=== PATIENT | male | born 1980 | race Caucasian/White ===

== ENCOUNTER 2020-04-14 04:46 | Emergency (ER) | payer SELFPAY ==
[~2020-04-14] VITALS: Ht 172.7 cm; Wt 115.4 kg
[2020-04-14 04:49] VITALS: BP 172/101
--- NOTE | 2020-04-14 04:56 | NUR ---
pt ambulated to room. no acute distress.
== END 2020-04-14 05:26 | disposition home or self-care (01) ==
LOC: ED 05:16
DX: K02.9 Dental caries, unspecified (principal); K08.89 Other specified disorders of teeth and supporting structures; I10 Essential (primary) hypertension; Z91.14 Patient's other noncompliance with medication regimen
CPT/HCPCS: 99283

== ENCOUNTER 2020-04-15 08:02 | Emergency (ER) | payer SELFPAY ==
[~2020-04-15] VITALS: Ht 172.7 cm; Wt 113.0 kg
[2020-04-15] MEDS ORDERED: BENZOCAINE AEROSOL SPRAY 20%, 60ML ONE (08:55)
[2020-04-15] MEDS ORDERED: LIDOCAINE-MPF 1%, 5ML ONE (08:55)
[2020-04-15] MEDS ORDERED: BENZOCAINE 20% SPRAY 0.5ML TP ONE (09:00)
[2020-04-15] MEDS ORDERED: LIDOCAINE-MPF 1%, 5ML INFIL ONE (09:00)
[2020-04-15 09:15] VITALS: BP 156/104
== END 2020-04-15 09:35 | disposition home or self-care (01) ==
LOC: ED 08:54
DX: K02.9 Dental caries, unspecified (principal); K08.89 Other specified disorders of teeth and supporting structures; R22.0 Localized swelling, mass and lump, head; I10 Essential (primary) hypertension; Z91.14 Patient's other noncompliance with medication regimen
CPT/HCPCS: 41800; 99284